=== PATIENT | male | born 1990 | race Caucasian/White ===

== ENCOUNTER 2019-03-21 05:34 | Emergency (ER) | payer OTHER ==
[~2019-03-21] VITALS: Ht 182.9 cm; Wt 90.7 kg
[~2019-03-21 05:34] MED LIST: IBUPROFEN 600600 M1 PO; NORCO 5-325 TA1 EACH PO; VALIUM5 MG PO
[2019-03-21 05:37] VITALS: BP 136/97
[2019-03-21] MEDS ORDERED: PROZAC20 MG PO (05:41)
[2019-03-21] MEDS ORDERED: BLEPH-105 ML OPHTHALMIC (05:59)
== END 2019-03-21 06:14 | disposition home or self-care (01) ==
LOC: M.ERS 05:34
DX: H57.89 Other specified disorders of eye and adnexa (principal); Z88.8 Allergy status to other drugs, medicaments and biological substances

== ENCOUNTER → 2020-11-16 | Outpatient (CLI) | payer OTHER ==
[~2020-11-16] MED LIST changes: +BLEPH-105 ML OPHTHALMIC; +PROZAC20 MG PO
== END ==
LOC: M.CT 11:30
PROVIDERS: ATTEND Nurse Practitioner Family
DX: R10.9 Unspecified abdominal pain (principal); R31.9 Hematuria, unspecified

== ENCOUNTER → 2020-11-16 | Outpatient (CLI) | payer OTHER | LOC: M.ULTRA 15:50 | PROVIDERS: ATTEND Nurse Practitioner Family | DX: N43.3 Hydrocele, unspecified (principal) ==